=== PATIENT | female | born 1950 | race Caucasian/White ===

== ENCOUNTER → 2020-09-08 | Outpatient (CLI) | payer MEDICARE ==
--- NOTE | 2020-09-08 17:04 | RAD ---
EXAM: Bilateral lower extremity arterial Doppler sonogram. HISTORY: Claudication. Hypertension. Diabetes. Peripheral vascular disease. TECHNIQUE: King scale and color Doppler sonographic imaging of the lower extremity arteries with spec tral waveform analysis was performed. COMPARISON: None. FINDINGS: There is an abnormal monophasic waveform within the right deep femoral artery and right ant erior tibial artery, suggesting hemodynamically significant proximal stenosis. There is a borderline elevated peak systolic velocity within the right common femoral artery. There are biphasic and tripha sic waveforms and normal peak systolic velocities throughout the remainder of the lower extremity art eries. IMPRESSION: 1. Abnormal waveforms suggesting hemodynamically significant proximal stenosis involving the right de ep femoral and anterior tibial arteries. 2. No evidence of arterial occlusion or hemodynamically significant stenosis involving the left lower extremity arteries. Electronically signed by: Holli Farmer MD (09/08/2020 5:01 PM) [id number]
== END ==
LOC: US 11:44
PROVIDERS: ATTEND Podiatrist Foot & Ankle Surgery
DX: I73.9 Peripheral vascular disease, unspecified (principal); I10 Essential (primary) hypertension
CPT/HCPCS: 93925

== ENCOUNTER → 2020-10-20 | Outpatient (CLI) | payer MEDICARE | LOC: LAB 13:10 | PROVIDERS: ATTEND Internal Medicine Cardiovascular Disease | DX: Z20.822 Contact with and (suspected) exposure to COVID-19 (principal); R94.39 Abnormal result of other cardiovascular function study | CPT/HCPCS: U0003 ==

== ENCOUNTER 2021-10-30 15:29 | Emergency (ER) | payer MEDICARE ==
[~2021-10-30] VITALS: Ht 160 cm; Wt 141.3 kg
--- NOTE | 2021-10-30 15:40 | PHYS DOC ---
Adult General HPI HPI Patient is a 71-year-old female presenting via EMS for headache, nausea vomit and chest pain. Reports she was at her apartment complex in the common area playing bingo with other members when she had a sudden onset front and left- sided headache that started without trauma or other exposure. States it was so severe it made her nauseous with subsequent x1 episode of nonbloody nonbilious emesis. After this, she started becoming diaphoretic and developed left-sided chest pain. This was described as pressure in nature but self resolved after a couple minutes without intervention. States she was anxious ever since and given symptoms, apartment complex contacted EMS. On arrival, patient found to be hemodynamically stable and asymptomatic. Patient reports she had similar episode occur 1 month prior but ultimately did not seek medical care for this. Has history of heart disease, has had cardiac catheterization in the past but unknown if she has a stent, does admit to daily 81 mg aspirin use though. No other major change in baseline health prior to episode today Review of Systems Review of Systems Fourteen body systems of review of systems have been reviewed. See HPI for pertinent positives and negative responses, other llanos all other systems are negative, non-pertinent or non-contributory Allergies Allergies Allergies Coded Allergies Type Severity Reaction Last Updated Verified No Known Drug Allergies 09/23/20 No Physical Exam Physical Exam Constitutional: Well developed, well nourished and morbidly obese, no acute distress, non-toxic appearance. HENT: Normocephalic, atraumatic, bilateral external ears normal, oropharynx moist, no oral exudates, nose normal. Eyes: PERRLA, EOMI, conjunctiva normal, no discharge. Neck: Normal range of motion, no tenderness, supple, no stridor. No meningeal signs and/or nuchal rigidity Cardiovascular: Heart rate regular, sinus rhythm, no murmurs rubs or gallops Lungs & Thorax: Bilateral breath sounds clear to auscultation Abdomen: Bowel sounds normal, soft, no tenderness, no masses, no pulsatile masses. Nonsurgical abdomen, no peritoneal signs Skin: Warm, dry, no erythema, no rash. Back: No tenderness, no CVA tenderness. Extremities: No tenderness, no cyanosis, no clubbing, ROM intact, no edema. Neurologic: Alert and oriented X 3, cranial nerves II through XII intact, normal motor & sensory function, no focal deficits noted. Psychologic: Anxious affect and mood Current Patient Data Vital Signs Vital Signs Date Time Temp Pulse Resp B/P (MAP) Pulse Ox O2 Delivery O2 Flow Rate FiO2 10/30/21 16:13 97.0 92 20 99/83 (88) 96 Vital Signs Date Time Temp Pulse Resp B/P (MAP) Pulse Ox O2 Delivery O2 Flow Rate FiO2 10/30/21 16:13 97.0 92 20 99/83 (88) 96 Lab Results Laboratory Tests Test 10/30/21 15:50 White Blood Count 10.2 x10^3/uL Red Blood Count 4.35 x10^6/uL Hemoglobin 13.4 g/dL Hematocrit 40.1 % Mean Corpuscular Volume 92 fL Mean Corpuscular Hemoglobin 31 pg Mean Corpuscular Hemoglobin Concent 33 g/dL Red Cell Distribution Width 14.8 % Platelet Count 277 x10^3/uL Neutrophils (%) (Auto) 81 % Lymphocytes (%) (Auto) 12 % Monocytes (%) (Auto) 7 % Eosinophils (%) (Auto) 0 % Basophils (%) (Auto) 0 % Neutrophils # (Auto) 8.2 x10^3uL Lymphocytes # (Auto) 1.3 x10^3/uL Monocytes # (Auto) 0.7 x10^3/uL Eosinophils # (Auto) 0.0 x10^3/uL Basophils # (Auto) 0.0 x10^3/uL Sodium Level 141 mmol/L Potassium Level 3.3 mmol/L Chloride Level 100 mmol/L Carbon Dioxide Level 23 mmol/L Anion Gap 18 Blood Urea Nitrogen 16 mg/dL Creatinine 1.6 mg/dL Estimated GFR (Cockcroft-Gault) 31.8 Glucose Level 125 mg/dL Calcium Level 9.2 mg/dL Troponin I High Sensitivity 12 ng/L EKG EKG EKG ordered and interpreted by myself at 1547 hrs. as sinus rhythm at 80 bpm, prolonged QRS of 142 and QTC at 474 otherwise unremarkable intervals, left axis deviation, T wave inversion noted in lead aVL, no STEMI Radiology/Procedures Radiology/Procedures EXAM: Head CT without contrast. HISTORY: Sudden onset headache. Emesis. TECHNIQUE: Computed tomographic images of the head were obtained without contrast. *One or more of the following individualized dose reduction techniques were utilized for this examination: 1. Automated exposure control. 2. Adjustment of the mA and/or kV according to patient size. 3. Use of iterative reconstruction technique. COMPARISON: None. FINDINGS: There is no acute or subacute extra-axial or intraparenchymal hemorrhage. There is no mass effect or midline shift. There is no hydrocephalus. There is cerebral atrophy. There is encephalomalacia due to chronic infarction involving the right temporal lobe. There are smaller infarct involving the right cerebellum. There are extensive white matter changes likely due to chronic small vessel disease. The visualized portions of the orbits, paranasal sinuses and mastoid air cells are unremarkable. No suspicious calvarial lesion is seen. IMPRESSION: 1. No acute intracranial finding. 2. 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 3. Bilateral cerebral white matter changes, most commonly due to chronic small vessel disease. Electronically signed by: Holli Farmer MD (10/30/2021 4:12 PM) [facility] //////////////// EXAM: Chest, single view. HISTORY: Chest pain. COMPARISON: None. FINDINGS: A frontal view of the chest is obtained. There is no infiltrate, pleural effusion or pneumothorax. The heart is normal in size. IMPRESSION: No acute pulmonary finding. Electronically signed by: Holli Farmer MD (10/30/2021 4:19 PM) [facility] Heart Score C/O Chest Pain: No HEART Score for Chest Pain: HEART Score for Chest Pain Response (Comments) Value History Slighlty/Non-Suspicious 0 ECG Normal 0 Age > 65 2 Risk Factors >3 Risk Factors or Hx CAD 2 Troponin < Normal Limit 0 Total 4 Risk Factors: Risk Factors: DM, Current or recent (<one month) smoker, HTN, HLP, family history of CAD, obesity. Risk Scores: Risk Factors: DM, Current or recent (<one month) smoker, HTN, HLP, family history of CAD, obesity. Course & Med Decision Making Course & Med Decision Making ABCs unremarkable HPI physical exam and comprehensive ER work-up nonconcerning for any emergent or surgical issues in an asymptomatic individual throughout entirety of ER visit. Low risk ACS or other acute ischemic cardiac event and/or emergent intracranial event such as SAH I discussed this might be an acute presentation more concerning pathology but given that patient has been asymptomatic ever since arrival and fact that she has PCP and [facility] administrator in outpatient setting, she deferred discharge home versus admission I reviewed heart score and patient's numerous comorbid risk factors and recommended admission, she continued to defer. As such, appropriate return precautions and supportive care practices advised prior to ER departure Radha Disclaimer Radha Disclaimer This electronic medical record was generated, in whole or in part, using a voice recognition dictation system. Departure Departure: Impression: Primary Impression: Headache Additional Impression: Chest pain Disposition: HOME / SELF CARE / HOMELESS Condition: STABLE Referrals: TRACY DOTY (PCP) Additional Instructions: You were seen for headache and chest pain. Your workup did not show any acute abnormalities today. You do need to follow up with your primary doctor and your [facility] administrator for further evaluation and treatment. Remaining work-up including CT head imaging was nonconcerning for any emergent or surgical issues, no obvious subarachnoid hemorrhage or other bony or intracranial abnormalities were noted. The symptoms self resolved prior to your ER departure. Nonetheless, you should return to the ED if you develop worsening chest pain, shortness of breath, fever, abnormal sweating, leg swelling, or any other new or concerning symptoms. Problem Qualifiers ANIL LOWE DO Oct 30, 2021 15:39
--- NOTE | 2021-10-30 16:09 | EKG ---
[address] [address] Test Date: 2021-10-30 Test Time: 15:42:06 Pat Name: SCOTT JAVIER Department: Room: Gender: F [employer]: ROXANA : 1950 Requested By: ANIL LWOE Order Number: [id number] Reading MD: Bo Lopez Measurements Intervals [place] Rate: 80 P: [place]: QRS: -44 QRSD: 142 T: 92 QT: 408 QTc: 474 Interpretive Statements SINUS RHYTHM VENTRICULAR PREMATURE COMPLEX(ES) ABNORMAL LEFT AXIS DEVIATION LEFT ANTERIOR FASCICULAR BLOCK NON SPECIFIC INTRAVENTRICULAR BLOCK QRS(T) CONTOUR ABNORMALITY CONSISTENT WITH SEPTAL INFARCT AGE UNDETERMINED ABNORMAL ECG RI6.01 No previous ECG available for comparison Electronically Signed On 10-31-2021 13:51:09 USED [employer] MANAGER by Bo Lopez
[2021-10-30 16:13] VITALS: BP 99/83
--- NOTE | 2021-10-30 16:14 | RAD ---
EXAM: Head CT without contrast. HISTORY: Sudden onset headache. Emesis. TECHNIQUE: Computed tomographic images of the head were obtained without contrast. *One or more of the following individualized dose reduction techniques were utilized for this examina tion: 1. Automated exposure control. 2. Adjustment of the mA and/or kV according to patient size. 3. Use of iterative reconstruction technique. COMPARISON: None. FINDINGS: There is no acute or subacute extra-axial or intraparenchymal hemorrhage. There is no mass effect or midline shift. There is no hydrocephalus. There is cerebral atrophy. There is encephalomalacia due to chronic infarction involving the right te mporal lobe. There are smaller infarct involving the right cerebellum. There are extensive white hayden er changes likely due to chronic small vessel disease. The visualized portions of the orbits, paranasal sinuses and mastoid air cells are unremarkable. No s uspicious calvarial lesion is seen. IMPRESSION: 1. No acute intracranial finding. 2. 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 3. Bilateral cerebral white matter changes, most commonly due to chronic small vessel disease. Electronically signed by: Holli Farmer MD (10/30/2021 4:12 PM) [facility]
--- NOTE | 2021-10-30 16:21 | RAD ---
EXAM: Chest, single view. HISTORY: Chest pain. COMPARISON: None. FINDINGS: A frontal view of the chest is obtained. There is no infiltrate, pleural effusion or pneumo thorax. The heart is normal in size. IMPRESSION: No acute pulmonary finding. Electronically signed by: Holli Farmer MD (10/30/2021 4:19 PM) [facility]
[2021-10-30 16:25] LABS: BASO % 0 % (0-3); EOS % 0 % (0-3); HEMATOCRIT 40.1 % (36.0-47.0); HEMOGLOBIN 13.4 g/dL (12.0-15.5); LYMPH # 1.3 x10^3/uL (1.0-4.8); LYMPH % 12 % (24-48); MEAN CORPUSCULAR HEMOGLOBIN 31 pg (25-35); MEAN CORPUSCULAR HGB CONC 33 g/dL (31-37); MEAN CORPUSCULAR VOLUME 92 fL (79-100); MONO # 0.7 x10^3/uL (0.0-1.1); MONO % 7 % (0-9); NEUT # 8.2 x10^3uL (1.8-7.7); NEUT % 81 % (31-73); PLATELET COUNT 277 x10^3/uL (140-400); RED BLOOD COUNT 4.35 x10^6/uL (3.50-5.40); RED CELL DISTRIBUTION WIDTH 14.8 % (11.5-14.5); WHITE BLOOD COUNT 10.2 x10^3/uL (4.0-11.0)
[2021-10-30 16:32] LABS: CALCIUM 9.2 mg/dL (8.5-10.1); CREATININE 1.6 mg/dL (0.6-1.0); GFR 31.8; POTASSIUM 3.3 mmol/L (3.5-5.1)
== END 2021-10-30 17:30 | disposition home or self-care (01) ==
LOC: ER 15:29
DX: R51.9 Headache, unspecified (principal); R07.89 Other chest pain; R11.2 Nausea with vomiting, unspecified
CPT/HCPCS: 36415; 70450; 71045; 80048; 84484; 85025; 93005; 99285

== ENCOUNTER → 2022-01-03 | Outpatient (CLI) | payer MEDICARE, OTHER ==
--- NOTE | 2022-01-04 11:36 | RAD ---
Two-view right knee radiographs 01/03/2022 CLINICAL HISTORY: Chronic right knee pain. AP and lateral digital radiographs of the right knee were obtained. Comparison study is dated 04/01/20 14. There is diffuse osteopenia of the visualized bony structures. The patient is post right TKA. No fracture or dislocation right knee is seen. No new lucency around the prosthetic components is seen. Atherosclerotic calcification of the right popliteal artery is noted. IMPRESSION: Post right TKA. No acute osseous abnormality is seen. Electronically signed by: Saad Eckert MD (01/04/2022 11:34 AM) [id number]
== END ==
LOC: RAD 14:54
PROVIDERS: ATTEND Family Medicine
DX: M85.88 Other specified disorders of bone density and structure, other site (principal); I70.8 Atherosclerosis of other arteries; Z96.651 Presence of right artificial knee joint
CPT/HCPCS: 73560